=== PATIENT | female | born 1985 | race Caucasian/White ===

== ENCOUNTER 2017-01-03 09:52 | Emergency (ER) | payer SELFPAY ==
[2017-01-03] MEDS ORDERED: PREDNISONE 20 MG TABLET PO ONE (10:48)
[2017-01-03] MEDS ORDERED: VALACYCLOVIR HCL 500 MG TABLET PO ONE (10:57)
--- NOTE | 2017-01-03 11:04 | ER Document Report ---
HPI - HPI Pain Level: 4 Context: Patient is a 31-year-old female who presents emergency department complaining of facial numbness and mild swelling but started this morning. Patient states that this is consistent with her history of Brody's palsy. She denies any. Rash , concern for tick exposure. Denies any burning sensation or vision symptoms - REPRODUCTIVE Reproductive: DENIES: : - DERM Skin Color: Normal Past Medical History - Social History Smoking Status: Unknown if Ever Smoked Family History: Arthritis, CVA, DM, Hyperlipidemia, Hypertension, Malignancy, Thyroid Disfunction Patient has suicidal ideation: No Patient has homicidal ideation: No Pulmonary Medical History: Reports: Hx Asthma Neurological Medical History: Reports: Hx Migraine Renal/ Medical History: Denies: Hx Peritoneal Dialysis Musculoskeltal Medical History: Reports Hx Musculoskeletal Trauma Psychiatric Medical History: Reports: Hx Anxiety Past Surgical History: Reports: Hx Orthopedic Surgery - glass that was imbedded in bone as child, Hx Tubal Ligation - Immunizations Immunizations up to date: Yes Hx Diphtheria, Pertussis, Tetanus Vaccination: Yes Vertical Provider Document - CONSTITUTIONAL Agree With Documented VS: Yes Exam Limitations: No Limitations General Appearance: WD/WN, No Apparent Distress - INFECTION CONTROL TRAVEL OUTSIDE OF THE [place] IN LAST 30 DAYS: No - HEENT HEENT: Atraumatic, Normal ENT Exam, Normocephalic, PERRLA - NECK Neck: Normal Inspection. negative: Lymphadenopathy-Left, Lymphadenopathy-Right - RESPIRATORY Respiratory: Breath Sounds Normal, No Respiratory Distress, Chest Non-Tender O2 Sat by Pulse Oximetry: 99 - CARDIOVASCULAR Cardiovascular: Regular Rate, Regular Rhythm, No Murmur - MUSCULOSKELETAL/EXTREMETIES Musculoskeletal/Extremeties: MAEW, FROM, Non-Tender, No Edema Notes: Evidence of pronator drift, facial weakness mildly on the right side with expression. Sensation intact - NEURO Level of Consciousness: Awake, Alert, Appropriate Motor/Sensory: No Motor Deficit, No Sensory Deficit. negative: Pronator Drift ( R), Pronator Drift (L), Sensory Deficit, Weak Motor Strength RUE, Weak Motor Strength LUE, Weak Motor Strength RLE, Weak Motor Strength LLE - DERM Integumentary: Warm, Dry, No Rash Course - Re-evaluation Re-evalutation: 01/03/17 17:45 Patient is a 31-year-old female who is alert and oriented 4, GCS of 15, hemodynamic stable, no acute distress and afebrile. Patient presentation consistent with her history of Brody's palsy. Patient to follow-up with primary care in 3-5 days and ophthalmology as needed - Vital Signs Vital signs: Temp Pulse Resp BP Pulse Ox 98.1 F 105 H 20 147/96 H 99 01/03/17 09:58 01/03/17 09:58 01/03/17 09:58 01/03/17 09:58 01/03/17 09:58 Discharge - Discharge Clinical Impression: Brody's palsy Condition: Good Disposition: HOME, SELF-CARE Instructions: Brody's Palsy ([facility]), Steroid Medication Prescriptions: Prednisone [Deltasone 20 mg Tablet] 3 tab PO DAILY 7 Days Valacyclovir HCl [Valtrex] 1,000 mg PO TID 7 Days Forms: Elevated Blood Pressure Referrals: ARUNA TERRELL MD [ACTIVE STAFF] - Follow up as needed
[2017-01-03 11:16] VITALS: BP 142/90
== END 2017-01-03 11:10 | disposition home or self-care (01) ==
LOC: ER 09:52
DX: G51.0 Bell's palsy (principal); R20.0 Anesthesia of skin; R22.0 Localized swelling, mass and lump, head; R21 Rash and other nonspecific skin eruption
CPT/HCPCS: 99283; J7512

== ENCOUNTER 2017-01-14 11:59 | Emergency (ER) | payer SELFPAY ==
[2017-01-14] MEDS ORDERED: IBUPROFEN 800 MG TABLET PO ONE (14:38)
--- NOTE | 2017-01-14 14:39 | ER Document Report ---
HPI - HPI Patient complains to provider of: Sore throat Onset: Other - 2 days Onset/Duration: Gradual Quality of pain: Achy Pain Level: 2 Context: Patient states that she was treated for Brody palsy on January 03. Patient states that her right facial swelling and drooping symptoms have resolved. Patient states 2 days ago she started to have sore throat, neck stiffness and generalized weakness. Patient complains of pain with swallowing. Patient states that she has had occasional episodes of palpitations at home although does not have any palpitations now. Patient denies any chest pain or cough. Patient denies any fever. Patient is concerned about possible Lyme's disease and would like to be tested. Patient complains of neck stiffness to the lateral aspect of her neck on each side. Associated Symptoms: Sore throat, Other - Generalized weakness. denies: Earache Exacerbated by: Denies Relieved by: Denies Similar symptoms previously: No Recently seen / treated by doctor: Yes - ROS ROS below otherwise negative: Yes Systems Reviewed and Negative: Yes All other systems reviewed and negative - CONSTITUTIONAL Constitutional: DENIES: Fever - EENT EENT: REPORTS: Sore Throat - NEURO Neurology: DENIES: Headache - CARDIOVASCULAR Cardiovascular: DENIES: Chest pain - RESPIRATORY Respiratory: DENIES: Coughing - GASTROINTESTINAL Gastrointestinal: DENIES: Nausea, Patient vomiting - REPRODUCTIVE Reproductive: DENIES: : - MUSCULOSKELETAL Musculoskeletal: REPORTS: Neck Pain. DENIES: Back Pain - DERM Skin Color: Normal Skin Problems: None Past Medical History - General Information source: Patient - Social History Smoking Status: Never Smoker Frequency of alcohol use: None Drug Abuse: None Occupation: Private duty nursing Lives with: Family Family History: Arthritis, CVA, DM, Hyperlipidemia, Hypertension, Malignancy, Thyroid Disfunction Patient has suicidal ideation: No Patient has homicidal ideation: No - Medical History Medical History: Negative Pulmonary Medical History: Reports: Hx Asthma Neurological Medical History: Reports: Hx Migraine Renal/ Medical History: Denies: Hx Peritoneal Dialysis Musculoskeltal Medical History: Reports Hx Musculoskeletal Trauma Psychiatric Medical History: Reports: Hx Anxiety Past Surgical History: Reports: Hx Orthopedic Surgery - glass that was imbedded in bone as child, Hx Tubal Ligation - Immunizations Immunizations up to date: Yes Hx Diphtheria, Pertussis, Tetanus Vaccination: Yes Vertical Provider Document - CONSTITUTIONAL Agree With Documented VS: Yes Exam Limitations: No Limitations General Appearance: WD/WN, No Apparent Distress - INFECTION CONTROL TRAVEL OUTSIDE OF THE [place] IN LAST 30 DAYS: No - HEENT HEENT: Atraumatic, Normocephalic, PERRLA, Pharyngeal Tenderness, Pharyngeal Erythema. negative: Pharyngeal Exudate - NECK Neck: negative: Lymphadenopathy-Left, Lymphadenopathy-Right Notes: Bilateral sternocleidomastoid muscle tenderness with spasm. No meningismus, negative Kernig sign. - RESPIRATORY Respiratory: Breath Sounds Normal, No Respiratory Distress - CARDIOVASCULAR Cardiovascular: Regular Rate, Regular Rhythm, No Murmur - BACK Back: Normal Inspection - MUSCULOSKELETAL/EXTREMETIES Musculoskeletal/Extremeties: MAEW, FROM - NEURO Level of Consciousness: Awake, Alert, Appropriate Motor/Sensory: No Motor Deficit - DERM Integumentary: Warm, Dry, No Rash Course - Re-evaluation Re-evalutation: 01/14/17 17:10 pt NAD, discussed results of test. Pt advised to f/u with pcp for a recheck as well as administration clerk for further evaluation of palpitations. Discussed worsening signs or symptoms that patient should return immediately for. Patient verbalized understanding and agrees with plan of care. - Laboratory Result Diagrams: 01/14/17 15:40 01/14/17 15:40 Laboratory results interpreted by me: 01/14/17 17:10 Labs- Entire Visit 01/14/17 01/14/17 01/14/17 15:20 15:20 15:40 WBC 14.2 H RBC 4.78 Hgb 14.3 Hct 44.0 MCV 92 MCH 30.0 MCHC 32.6 RDW 13.0 Plt Count 234 Seg Neutrophils % 69.8 Lymphocytes % 22.2 Monocytes % 6.3 Eosinophils % 1.4 Basophils % 0.3 Absolute Neutrophils 9.9 H Absolute Lymphocytes 3.1 Absolute Monocytes 0.9 Absolute Eosinophils 0.2 Absolute Basophils 0.0 Sodium Potassium Chloride Carbon Dioxide Anion Gap BUN Creatinine Est GFR ( Amer) Est GFR (Non-Af Amer) Glucose Calcium TSH Serum HCG, Qual Monotest NEGATIVE Group A Strep Rapid POSITIVE 01/14/17 01/14/17 01/14/17 15:40 15:40 15:40 WBC RBC Hgb Hct MCV MCH MCHC RDW Plt Count Seg Neutrophils % Lymphocytes % Monocytes % Eosinophils % Basophils % Absolute Neutrophils Absolute Lymphocytes Absolute Monocytes Absolute Eosinophils Absolute Basophils Sodium 139.5 Potassium 4.2 Chloride 103 Carbon Dioxide 27 Anion Gap 10 BUN 13 Creatinine 0.58 Est GFR ( Amer) > 60 Est GFR (Non-Af Amer) > 60 Glucose 75 Calcium 9.0 TSH 1.56 Serum HCG, Qual NEGATIVE Monotest Group A Strep Rapid 01/14/17 20:02 Discharge - Discharge Clinical Impression: Strep pharyngitis, Sore throat, History of palpitations Condition: Stable Disposition: HOME, SELF-CARE Instructions: Palpitations (Irregular or Rapid Heartrate) ([facility]), Strep Throat ( [facility]), Penicillin V K ([facility]) Additional Instructions: Return immediately for any new or worsening symptoms Followup with your primary care provider, call tomorrow to make a followup appointment Follow-up with a administration clerk for further evaluation of reported palpitations. Prescriptions: Penicillin V Potassium [Penicillin Vk 500 mg Tablet] 500 mg PO BID #20 tablet Forms: Return to Work Referrals: [facility] [Provider Group] - Follow up as needed PAOLO SKINNER MD [ACTIVE STAFF] - Follow up as needed EVANGELINA LAZO MD [ACTIVE STAFF] - Follow up as needed
[2017-01-14 16:08] LABS: ABSOLUTE EOSINOPHILS # (AUTO) 0.2 10^3/uL (0.0-0.6); ABSOLUTE LYMPHOCYTES (AUTO) 3.1 10^3/uL (0.5-4.7); ABSOLUTE MONOCYTES (AUTO) 0.9 10^3/uL (0.1-1.4); ABSOLUTE NEUT (AUTO) 9.9 10^3/uL (1.7-8.2); BASOPHILS % (AUTO) 0.3 % (0-2); EOSINOPHILS % (AUTO) 1.4 % (0-6); HEMOGLOBIN 14.3 g/dL (12.0-15.5); HGB HCT DIFFERENCE -1.1; LYMPHOCYTES % (AUTO) 22.2 % (13-45); MEAN CORPUSCULAR HGB CONC 32.6 g/dL (32.0-36.0); MEAN CORPUSCULAR VOLUME 92 fl (80-97); MONOCYTES % (AUTO) 6.3 % (3-13); RED BLOOD COUNT 4.78 10^6/uL (3.72-5.28); SEGMENTED NEUTROPHILS % (AUTO) 69.8 % (42-78); WHITE BLOOD COUNT 14.2 10^3/uL (4.0-10.5)
[2017-01-14 16:17] LABS: ANION GAP 10 (5-19); BLOOD UREA NITROGEN 13 mg/dL (7-20); CARBON DIOXIDE 27 mmol/L (22-30); CHLORIDE 103 mmol/L (98-107); CREATININE RESULT 0.58 mg/dL (0.52-1.25); GLUCOSE 75 mg/dL (75-110); POTASSIUM 4.2 mmol/L (3.6-5.0); SODIUM 139.5 mmol/L (137-145)
[2017-01-14] MEDS ORDERED: PENICILLIN V POTASSIUM 500 MG TABLET PO ONE (17:10)
[2017-01-14 17:28] VITALS: BP 131/80
--- NOTE | 2017-01-14 20:34 | EKG REPORT ---
SEVERITY:- BORDERLINE ECG - SINUS RHYTHM PROBABLE LEFT ATRIAL ABNORMALITY INFERIOR Q WAVES, PROBABLY NORMAL VARIATION : Confirmed by: Dominguez Bal MD 14-Jan-2017 20:34:01
[2017-01-17 11:33] LABS: LYME DISEASE IGG AND IGM AB <0.91 ISR (0.00-0.90)
== END 2017-01-14 17:25 | disposition home or self-care (01) ==
LOC: ER 11:59
DX: J02.0 Streptococcal pharyngitis (principal); M43.6 Torticollis; R53.1 Weakness; Z98.51 Tubal ligation status
CPT/HCPCS: 36415; 80048; 84443; 84703; 85025; 86308; 86617; 86618; 87880; 93005; 93010; 99285

== ENCOUNTER 2017-04-30 18:06 | Emergency (ER) | payer SELFPAY ==
[2017-04-30 18:13] VITALS: BP 153/102
--- NOTE | 2017-04-30 19:10 | ER Document Report ---
HPI - HPI Patient complains to provider of: umbilical pain Pain Level: 3 Context: Patient is a 31-year-old female presented to emergency department complaining of umbilical pain with drainage. Patient states that she was lifting weights and doing squats on Thursday when she felt a tear in her bellybutton. She states she has been having pain since then she also admits to roach drainage coming from her bellybutton as well as mild redness surrounding her bellybutton. Otherwise she denies any nausea, vomiting, abdominal pain, diarrhea or constipation, fevers or chills. States she has been having regular bowel movements. Past surgical history significant for a tubal ligation via mini laparotomy inferior to the umbilicus 5 years ago and [facility]. Her current [employer] is in [place] - REPRODUCTIVE Reproductive: DENIES: : Past Medical History - Social History Smoking Status: Unknown if Ever Smoked Family History: Arthritis, CVA, DM, Hyperlipidemia, Hypertension, Malignancy, Thyroid Disfunction Pulmonary Medical History: Reports: Hx Asthma Neurological Medical History: Reports: Hx Migraine Renal/ Medical History: Denies: Hx Peritoneal Dialysis Musculoskeltal Medical History: Reports Hx Musculoskeletal Trauma Psychiatric Medical History: Reports: Hx Anxiety Past Surgical History: Reports: Hx Orthopedic Surgery - glass that was imbedded in bone as child, Hx Tubal Ligation - Immunizations Immunizations up to date: Yes Hx Diphtheria, Pertussis, Tetanus Vaccination: Yes Vertical Provider Document - CONSTITUTIONAL Notes: PHYSICAL EXAM GENERAL: Alert, interacts well. LUNGS: Clear to auscultation bilaterally, no wheezes, rales, or rhonchi. No respiratory distress. HEART: Regular rate and rhythm. No murmurs, gallops, or rubs. ABDOMEN: Soft, nondistended, nontender. No guarding, rebound, or rigidity.. Bowel sounds present in all 4 quadrants. No evidence of umbilical hernia. Minimal amount of roach drainage located in the umbilicus without evidence of granuloma. EXTREMITIES: Moves all 4 extremities spontaneously. No edema, radial and dorsalis pedis pulses 2/4 bilaterally. No cyanosis. NEUROLOGICAL: Alert and oriented x4. Normal speech. PSYCH: Normal affect, normal mood. SKIN: Warm, dry, normal turgor. No rashes or lesions noted. Mild erythema surrounding the umbilicus without evidence of induration. - INFECTION CONTROL TRAVEL OUTSIDE OF THE [place] IN LAST 30 DAYS: No - RESPIRATORY O2 Sat by Pulse Oximetry: 95 Course - Re-evaluation Re-evalutation: 04/30/17 20:17 Patient is a 31-year-old female who is hemodynamically stable, no acute distress and afebrile. Presentation seems to be consistent with either an umbilical granuloma or irritation from likely underlying sutures from her tubal ligation incision. At this time there is no evidence of underlying abscess or infection. Will initiate patient on antibiotics for cellulitis coverage and patient to follow-up with her [employer]. Patient given strict return precautions otherwise stable for discharge. - Vital Signs Vital signs: Temp Pulse Resp BP Pulse Ox 97.7 F 109 H 16 153/102 H 95 04/30/17 18:11 04/30/17 18:11 04/30/17 18:11 04/30/17 18:11 04/30/17 18:11 Discharge - Discharge Clinical Impression: Cellulitis Condition: Good Disposition: HOME, SELF-CARE Instructions: Cellulitis ([facility]) Additional Instructions: Please follow-up with your [employer] in [facility] regarding today's visit in 1 week. Prescriptions: Sulfamethoxazole/Trimethoprim [Bactrim Ds Tablet] 1 each PO BID #10 tablet
[2017-04-30] MEDS ORDERED: ACETAMINOPHEN 325 MG TABLET PO ONE (19:11)
[2017-04-30] MEDS ORDERED: SULFAMETHOXAZOLE/TRIMETHOPRIM 800-160 MG TABLET PO ONE (19:11)
== END 2017-04-30 19:33 | disposition home or self-care (01) ==
LOC: ER 18:06
DX: L03.316 Cellulitis of umbilicus (principal); R10.33 Periumbilical pain; Z98.51 Tubal ligation status
CPT/HCPCS: 99283